=== PATIENT | female | born 1990 | race Caucasian/White ===

== ENCOUNTER 2021-01-16 00:15 | Emergency (ER) | payer SELFPAY ==
[~2021-01-16] VITALS: Ht 157.5 cm; Wt 51.0 kg
[2021-01-16 00:20] VITALS: BP 132/81
[2021-01-16 00:44] LABS: CLARITY URINE CLOUDY (CLEAR); COLOR URINE YELLOW (YELLOW); KETONES URINE NEGATIVE (NEGATIVE); LEUKOCYTE ESTERASE URINE 3+ (NEGATIVE); NITRITE URINE NEGATIVE (NEGATIVE); OCCULT BLOOD URINE 1+ (NEGATIVE); PROTEIN URINE NEGATIVE (NEGATIVE); SPECIFIC GRAVITY URINE 1.013 (1.005-1.030); UROBILINOGEN URINE 0.2 E.U./dL (0.2-1.0)
[2021-01-16] MEDS ORDERED: NITR100C MT (00:54)
[2021-01-16] MEDS ORDERED: PHEN-815 MT (00:54)
== END 2021-01-16 01:05 | disposition home or self-care (01) ==
LOC: ER 00:33
DX: N39.0 Urinary tract infection, site not specified (principal); D25.9 Leiomyoma of uterus, unspecified
CPT/HCPCS: 81003; 81025; 99283